=== PATIENT | male | born 1955 ===

== ENCOUNTER 2017-08-31 17:38 | Emergency (ER) | payer OTHER ==
[2017-08-31 22:10] VITALS: BP 171/89
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
[2017-09-01] MEDS ORDERED: NORCO 5/325 ONE (01:14)
[2017-09-01] MEDS ORDERED: NORCO 5/325 PO ONE (01:16)
== END 2017-09-01 02:08 | disposition home or self-care (01) ==
LOC: ED 17:38
DX: S03.42XA Sprain of jaw, left side, initial encounter (principal); S00.93XA Contusion of unspecified part of head, initial encounter; M25.511 Pain in right shoulder; R07.81 Pleurodynia; Y08.89XA Assault by other specified means, initial encounter; Y93.89 Activity, other specified; Y92.89 Other specified places as the place of occurrence of the external cause; Y99.8 Other external cause status
CPT/HCPCS: 70486; 71046